=== PATIENT | male | born 1995 | race Caucasian/White ===

== ENCOUNTER 2023-11-19 18:28 | Emergency (ER) | payer MEDICAID, SELFPAY ==
[2023-11-19] VITALS (21 sets, daily range): BP systolic 111–152; BP diastolic 28–83; PULSE 83–110; RESP 9–28; TEMP 36.7; O2SAT 97–100
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
[2023-11-19 18:45] LABS: HCT 42.5 % (40.0-50.0); HGB 14.3 g/dL (13.5-17.5); MCH 29.9 pg (27.0-33.0); MCHC 33.6 % (32.0-36.0); MCV 89 fL (80-95); MPV 9.6 fL (8.0-11.0); Platelet Count 300 10^3/uL (130-400); RBC 4.79 10^6/uL (4.36-5.78); RDW 12.4 % (11.8-14.1); RDW-SD 40.7 fL
[2023-11-19 18:53] LABS: Lactate 2.8 mmol/L (0.6-1.4)
[2023-11-19] MEDS: Omnipaque 350 MG/ML 100 ML BTL IJ (18:54)
[2023-11-19] MEDS: Normal Saline - Diluent 50 ML VIAL IJ (18:54)
[2023-11-19 18:58] LABS: INR 1.1 (0.9-1.1); PTT Activated 24.1 sec (23.6-32.8); Prothrombin Time 10.7 sec (9.1-11.1)
[2023-11-19 19:01] LABS: Absolute Eosinophil Count 0.72 10^3/uL (0.0-0.7); Absolute Lymphocyte Count 6.91 10^3/uL (1.2-3.4); Absolute Monocyte Count 0.58 10^3/uL (0.1-0.8); Absolute Neutrophil Count 6.19 10^3/uL (1.2-6.7); Atypical Lymphocytes % 8 %; Diff Comment Manual Differential; RBC Morphology Normal
[2023-11-19 19:08] LABS: ALT 41 U/L (16-63); AST 29 U/L (15-37); Albumin 4.5 g/dL (3.4-5.0); Alkaline Phosphatase 99 U/L (46-116); Anion Gap 13.1 mmol/L (3-11); BUN 16 mg/dL (7-18); Bilirubin, Total 0.57 mg/dL (0.2-1.0); CO2 26.9 mmol/L (21.0-32.0); CREATININE 1.2 mg/dL (0.70-1.30); Calcium 9.2 mg/dL (8.5-10.1); Chloride 102 mmol/L (98-107); Glucose 144 mg/dL (74-106); Potassium 3.8 mmol/L (3.5-5.1); Sodium 142 mmol/L (136-145); Total Protein 7.7 g/dL (6.4-8.2); Troponin I 4 ng/L (<or=76)
[2023-11-19 19:16] LABS: Amylase 38 U/L (25-115); Lipase 18 U/L (16-77)
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
[2023-11-19] MEDS: ACETAMINOPHEN 1,000 MG/100 ML BTL 400 MG IVPB (19:49)
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
[2023-11-19] MEDS: Normal Saline 500 ML IV (20:04)
[2023-11-19] MEDS: Lidocaine/Epinephri/Tetracaine Topical Gel 3 ML TP ×2 (20:05→20:45)
[2023-11-19 20:12] LABS: Troponin I 6 ng/L (<or=76)
--- NOTE | 2023-11-19 21:20 | NUR.NOTE ---
Requested images to be pushed to [facility] per Dr. Jeffries
[2023-11-19 22:18] LABS: Bilirubin Negative (Negative); Blood Negative (Negative); Clarity Clear (Clear); Glucose Negative (Negative); Ketones 40 mg/dL (Negative); Leukocyte Esterase Negative (Negative); Nitrite Negative (Negative); Urobilinogen 0.2 mg/dL (Up to 0.2)
[2023-11-19 22:34] LABS: Bacteria Negative HPF (Negative); C & S Indicated? No; Casts 0-2 Hyaline LPF (Negative); Crystals Rare Calcium Oxalate HPF (Negative); Epithelial Cells Rare HPF (Negative); Mucus Trace (Negative); RBC 0-2 HPF (0-2); WBC 0-2 HPF (0-5)
[2023-11-19] MEDS: Cyclobenzaprine 10 MG TAB, 3 TABS/BTL PO (22:51)
[2023-11-23] MEDS: Omnipaque 350 MG/ML 100 ML BTL IJ (09:25)
[2023-11-23] MEDS: Normal Saline - Diluent 50 ML VIAL IJ (09:25)
== END 2023-11-19 22:50 | disposition home or self-care (01) ==
PROVIDERS: Emergency Provider Physician Assistant
DX: S01.112A Laceration without foreign body of left eyelid and periocular area, initial encounter (principal); S01.111A Laceration without foreign body of right eyelid and periocular area, initial encounter; S01.81XA Laceration without foreign body of other part of head, initial encounter; S01.511A Laceration without foreign body of lip, initial encounter; R94.31 Abnormal electrocardiogram [ECG] [EKG]; V47.5XXA Car driver injured in collision with fixed or stationary object in traffic accident, initial encounter
CPT/HCPCS: 12013; 73552; 74177; 80053; 83690; 93005; 96361; 96365; 99285; 70450; 70486; 71260; 72125; 80320; 81003; 81015; 82150; 83605; 84484; 85025; 85610; 85730; 93010; 99284; J0131; J2003; J3490

== ENCOUNTER 2023-11-25 17:32 | Emergency (ER) | payer MEDICAID, SELFPAY ==
[2023-11-25 17:36] VITALS: BP 119/74; PULSE 81; RESP 20; TEMP 37; O2SAT 98
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
== END 2023-11-25 18:10 | disposition home or self-care (01) ==
PROVIDERS: Emergency Provider Emergency Medicine
DX: S01.111D Laceration without foreign body of right eyelid and periocular area, subsequent encounter (principal); S01.511D Laceration without foreign body of lip, subsequent encounter; V49.9XXD Car occupant (driver) (passenger) injured in unspecified traffic accident, subsequent encounter